=== PATIENT | female | born 1995 | race Hispanic/Latino ===

== ENCOUNTER 2018-11-20 16:34 | Inpatient (IN) | payer MEDICAID ==
[~2018-11-20] VITALS: Ht 149.9 cm; Wt 91.2 kg
[~2018-11-20 16:34] MED LIST: PREN-146 PO
[2018-11-20 17:26] LABS: HEMATOCRIT 36.6 % (36-48); MEAN CORPUSCULAR HEMOGLOBIN 27.1 pg (27.0-33.0); MEAN CORPUSCULAR HGB CONC 32.1 g/dL (32.0-36.0); MEAN CORPUSCULAR VOLUME 84.4 fL (79-99); NUCLEATED RED BLOOD CELLS 0.1 % (0.0-0.19); PLATELET COUNT (AUTO) 202 K/uL (130-400); RED BLOOD CELL COUNT(AUTO) 4.33 MIL/uL (4.00-5.50); RED CELL DISTRIBUTION WIDTH 14.5 % (11.0-15.5)
[2018-11-20] MEDS ORDERED: AMPICILLIN 2GM+NS 100ML 100 ML IV ONE (17:28)
[2018-11-20] MEDS ORDERED: LACTATED RINGERS 1000ML 1,000 ML IV PRN (17:29)
[2018-11-20 17:30] LABS: APPEARANCE,URINE Clear (CLEAR); BILIRUBIN,URINE Negative (NEGATIVE); COLOR,URINE Yellow (YELLOW); GLUCOSE, URINE (UA) Negative (NEGATIVE); KETONES,URINE 15 mg/dL (NEGATIVE); LEUKOCYTE ESTERASE ,URINE Negative (NEGATIVE); NITRATE,URINE Negative (NEGATIVE); OCCULT BLOOD,URINE Negative (NEGATIVE); PH,URINE 6.5 (5.0-8.0); PROTEIN,URINE Trace (NEGATIVE)
[2018-11-20] MEDS ORDERED: OXYTOCIN 10 USP UNITS/ML ONE ×2 (17:30→19:31)
[2018-11-20] MEDS ORDERED: LACTATED RINGERS 1000ML 1,000 ML IV ONE (17:30)
[2018-11-20] MEDS ORDERED: AMPICILLIN 2GM+NS 100ML 100 ML IV SCH (17:30)
[2018-11-20] MEDS ORDERED: AMPICILLIN 1GM+NS 50ML 50 ML IV SCH (17:30)
[2018-11-20 18:07] LABS: RBC,URINE 0-1 /HPF (0-1); WBC,URINE 0-1 /HPF (0-1)
[2018-11-20 18:08] LABS: BACTERIA,URINE Rare /HPF (None Seen); SQUAMOUS EPITHELIAL CELL,UR Few /HPF (0-2)
[2018-11-20] MEDS ORDERED: OXYTOCIN-LR 20 UNITS/1000 ML 1,000 ML IV SCH (18:15)
[2018-11-20] MEDS ORDERED: OXYTOCIN 10 USP UNITS/ML IM STA (19:23)
[2018-11-20] MEDS ORDERED: LANOLIN 30GM OINTMENT TP PRN (20:00)
[2018-11-20] MEDS ORDERED: MEASLES/MUMPS/RUBELLA VACCINE, LIVE 0.5 ML/VIAL SQ PRN (20:00)
[2018-11-20] MEDS ORDERED: ACETAMINOPHEN 325 MG TAB PO PRN (20:00)
[2018-11-20] MEDS ORDERED: BENZOCAINE/LANOLIN/ALOE VERA 60 ML AEROSOL TP PRN (20:00)
[2018-11-20] MEDS: OXYTOCIN-LR 20 UNITS/1000 ML 1,000 ML IV SCH (20:00)
[2018-11-20] MEDS ORDERED: DIPH,PERTUSS(ACELL),TET VAC/PF 0.5 ML VIAL IM PRN (20:00)
[2018-11-20] MEDS ORDERED: WITCH HAZEL 1 PAD TP PRN (20:00)
[2018-11-20 20:30] VITALS: BP 128/80
[2018-11-20] MEDS: IBUPROFEN 800 MG TAB PO PRN (20:31)
[2018-11-20] MEDS: DOCUSATE SODIUM 100 MG CAP PO SCH (20:31)
[2018-11-20 21:15] VITALS: BP 128/76
[2018-11-21 00:21] VITALS: BP 121/76
[2018-11-21 04:35] VITALS: BP 138/80
[2018-11-21 05:51] LABS: MEAN CORPUSCULAR HEMOGLOBIN 27.7 pg (27.0-33.0); MEAN CORPUSCULAR HGB CONC 32.8 g/dL (32.0-36.0); MEAN CORPUSCULAR VOLUME 84.3 fL (79-99); PLATELET COUNT (AUTO) 162 K/uL (130-400); RED CELL DISTRIBUTION WIDTH 14.4 % (11.0-15.5)
[2018-11-21 07:21] VITALS: BP 125/76
[2018-11-21] MEDS: DOCUSATE SODIUM 100 MG CAP PO SCH (09:08)
[2018-11-21] MEDS: IBUPROFEN 800 MG TAB PO PRN (09:09)
[2018-11-21 11:22] VITALS: BP 116/67
[2018-11-21 15:26] VITALS: BP 130/79
--- NOTE | 2018-11-21 18:04 | NUR ---
Hx of depresion - Open CPS case Sw spoke to local CPS office. Pt has open case related to drug abuse. SW spoke to casewker Staci Rosas [phone] who asked for meconium test on baby. Staci states baby can dc with mom since we did not drug test and she will f/u with meconium results. Sw met with pt who lives at her grandmother's [address] [phone] with pt's 4 daughters 7,4,3,2 and Inés Mendenhall. Pt independent, works at [employer] is on Medicaid, WIC, Food stamps and gets child support. Pt states she has all basic items for baby including car seat and Dr Ryan will follow baby at dc. Pt states she has hx of depression, last episode was in May and she restarted her psych care at [facility] until Sep and never filled rx because of . Pt states she will see how she feels after recovery from delivery and reschedule appt with [facility] if needed. Pt reports hx of ideations when she was younger but denies any recent episodes. Pt reports good support system in place with her grandmother and ex mother in law Nayana Rosas. 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 Pt states she had a recent CPS case but was not sure if it was still open. Pt denies need for drug recourse list. CPS to follow up with pt and baby after dc
[2018-11-21] MEDS: OXYTOCIN-LR 20 UNITS/1000 ML 1,000 ML IV SCH (19:10)
--- NOTE | 2018-11-21 19:25 | NUR ---
DISCHARGE PT STABLE, NO PAIN, NO COMPLAINTS; PT LEFT UNIT, VIA WHEELCHAIR, WITH BABY STRAPPED IN CAR SEAT ON LAP, ACCOMPANIED BY [facility] CARRYING ALL PERSONAL BELONGINGS, INSTRUCTIONS, AND PRESCRIPTION; PT LEFT FACILITY IN PERSONAL VEHICLE
[2018-11-22 08:24] LABS: HEPATITIS Bs ANTIGEN SCREEN P Negative (Negative)
== END 2018-11-21 19:25 | disposition home or self-care (01) | DRG 560 ==
LOC: EDH 16:34 → OBSVTOIN 17:01 → LDH 17:01 → WSH 21:20
PROVIDERS: ADMIT Obstetrics & Gynecology; ATTEND Obstetrics & Gynecology
PROC: 10E0XZZ Delivery of Products of Conception, External Approach (ICD-10-PCS; principal; 2018-11-20)
PROC: 10907ZC Drainage of Amniotic Fluid, Therapeutic from Products of Conception, Via Natural or Artificial Opening (ICD-10-PCS; 2018-11-20)
PROC: 3E0234Z Introduction of Serum, Toxoid and Vaccine into Muscle, Percutaneous Approach (ICD-10-PCS; 2018-11-20)
DX: O80 Encounter for full-term uncomplicated delivery (principal); Z23 Encounter for immunization; Z37.0 Single live birth; Z3A.38 38 weeks gestation of pregnancy
CPT/HCPCS: 36415; 81001; 85027; 86592; 86850; 86870; 86900; 86901; 87340; 90715; A4351; G0378; J0290; J2590; J7120

== ENCOUNTER 2019-08-08 11:08 | Emergency (ER) | payer MEDICAID, OTHER ==
[2019-08-08] MEDS ORDERED: IBUPROFEN 100 MG/5 ML SUSP UDCUP ONE (14:05)
== END 2019-08-08 12:20 | disposition home or self-care (01) ==
LOC: EDH 11:08
DX: S80.12XA Contusion of left lower leg, initial encounter (principal); Z72.0 Tobacco use; Y03.8XXA Other assault by crashing of motor vehicle, initial encounter; Y93.89 Activity, other specified; Y92.89 Other specified places as the place of occurrence of the external cause; Y99.8 Other external cause status
CPT/HCPCS: 99281

== ENCOUNTER 2020-04-09 09:01 | Emergency (ER) | payer OTHER | END 2020-04-09 12:35 | disposition home or self-care (01) | LOC: EDH 09:01 | DX: F41.1 Generalized anxiety disorder (principal); R07.89 Other chest pain; Z33.1 Pregnant state, incidental; F32.9 Major depressive disorder, single episode, unspecified ==